=== PATIENT | male | born 1970 | race Caucasian/White ===

== ENCOUNTER 2023-09-26 12:31 | Outpatient (CLI) | payer BC, SELFPAY ==
[2023-09-26 13:23] LABS: Basophils Absolute Auto 0.1 K/mm3 (0.0-0.1); Eosinophils Absolute Auto 0.3 K/mm3 (0-0.3); Eosinophils Percent Auto 4.5 % (0-4.4); Hematocrit 47.7 % (42.0-52.0); Immature Granulocyte Absolute 0.01 K/mm3 (0.00-0.031); Immature Granulocyte Percent A 0.2 % (0-0.5); Lymphocytes Absolute Auto 1.78 K/mm3 (0.9-3.2); Lymphocytes Percent Auto 30.9 % (18.3-44.2); Mean Corpuscular HGB Conc 33.5 g/dl (32-36); Mean Corpuscular Hemoglobin 27.4 pg (26-34); Mean Corpuscular Volume 81.5 fl (80-100); Mean Platelet Volume 10.7 fl (7.4-10.4); Monocytes Absolute Auto 0.5 K/mm3 (0.1-0.6); Monocytes Percent Auto 8.3 % (2.6-8.5); Neutrophils Absolute Auto 3.2 K/mm3 (1.3-6.7); Neutrophils Percent Auto 55.1 % (45.5-73.1); Platelet Count Result 211 k/mm3 (150-375); Red Blood Count 5.85 M/mm3 (4.6-6.20); Red Cell Distribution Width 13.9 % (11.5-14.5); White Blood Count 5.8 K/mm3 (4.5-10.0)
[2023-09-26 13:32] LABS: Alanine Aminotransferase 30 U/L (6-50); Albumin Level 4.8 g/dL (3.5-5.1); Alkaline Phosphatase 47 U/L (38-126); Anion Gap 8 mmol/L (4-12); Aspartate Amino Transferase 36 U/L (17-59); Bilirubin,Total 1.3 mg/dL (0.2-1.3); Blood Urea Nitrogen 17 mg/dL (9-20); Calcium 9.8 mg/dL (8.4-10.2); Carbon Dioxide 28 mmol/L (22-30); Chloride 104 mmol/L (98-107); Cholesterol 245 mg/dL (0-200); Estimated Glomerular Filt Rate > 60; Glucose 103 mg/dL (65-110); HDL Direct 41 mg/dL; Potassium 4.8 mmol/L (3.4-5.0); Sodium 140 mmol/L (137-145); Triglycerides 183 mg/dL (<150)
[2023-09-26 13:44] LABS: LDL Cholesterol Direct 158 mg/dL
[2023-09-26 14:02] LABS: Prostate Specific Antigen 1.7 ng/mL (< OR = 4.0)
[2023-09-26 14:27] LABS: Hemoglobin A1C 5.6 % (<5.7)
== END 2023-09-26 12:32 | disposition home or self-care (01) ==
LOC: ANHGOSHLAB 12:33
PROVIDERS: PCP Family Medicine; Visit Provider Family Medicine
DX: Z12.5 Encounter for screening for malignant neoplasm of prostate (principal); R73.9 Hyperglycemia, unspecified; R53.83 Other fatigue; Z13.220 Encounter for screening for lipoid disorders; Z13.228 Encounter for screening for other metabolic disorders
CPT/HCPCS: 36415; 80053; 80061; 83036; 84153; 85025; G0103

== ENCOUNTER 2024-02-13 03:02 | Day surgery (SDC) | payer BC, SELFPAY ==
[2024-02-03 10:48] VITALS: BMI 33.2
[2024-02-13 10:15] VITALS: BP 111/71; PULSE 64; RESP 18; TEMP 35.9; O2SAT 98; BMI 33.2
[2024-02-13] MEDS: LACTATED RINGERS 1,000 ML 150 ML IV CONT (10:25)
--- NOTE | 2024-02-13 10:52 | P.PNAN_ITS ---
Anes - Initial Pre Proc Eval Procedure: Operation Date: 02/13/24 11:00 Proposed Procedures p Screening Colonoscopy - Piotr Chapman MD Date/Time: 02/13/24 10:52 Surgeon: Piotr Chapman MD Pre Op Diagnosis: screening colon Patient Data Age: 53 Gender: M Height: 1.78 m Weight: 105 kg Last Vital Signs Temp 35.9 C L 02/13/24 10:15 Pulse 64 02/13/24 10:15 Resp 18 02/13/24 10:15 BP 111/71 02/13/24 10:15 Pulse Ox 98 02/13/24 10:15 O2 Del Method Room Air 02/13/24 10:15 Allergies Allergy/AdvReac Type Severity Reaction Status Date / Time milk Allergy Mild Abdominal Verified 02/13/24 10:19 Pain Home Medications Medication Instructions Recorded Confirmed Type diphenhydramine HCl 25 mg capsule 50 mg PO QHS 09/26/23 02/13/24 History (Benadryl) melatonin 5 mg tablet 5 mg PO QHS 09/26/23 02/13/24 History dicyclomine 10 mg capsule 10 mg PO BID #60 caps 10/24/23 02/13/24 Rx tadalafil 5 mg tablet 5 mg PO DAILY #30 tabs 10/27/23 02/13/24 Rx Patient hx anesthesia problems: none Family hx anesthesia problems: none Results Review: All pre-operative results and documents have been reviewed as part of the pre- operative evaluation. ON LICENSE OF [facility] Social History Social History Social History: caffeine- coffee 1 cup daily Smoking status: Never smoker Alcohol intake: current Alcohol use details: social Substance use: never Do You Feel Safe in your Home?: Yes Lack of Transportation: No Lack of Food: Never True Current Housing: I Have Housing Concerned About Future Housing: No Difficulty Paying Gas/Electric Bills: No Difficulty Paying for Meds: No Currently Unemployed: No Education: Bachelor's Degree Difficulty w/ Childcare or Family Care: No Living arrangements: with family Occupation/Education: occupation 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 Gender identity (if verbalized by the patient): Female Spiritual care concerns: No Agree to blood products: Yes Anes - Eval Final PreProcedure Day of Procedure 02/13/24 10:52 Patient weight: obese Heart: regular rate and rhythm Lungs: clear to auscultation Airway: Mallampati scale class II Neurological: alert and oriented Last oral intake: >/= 8 hours ASA classification: III Emergent: no Anesthetic plan: proceed Anesthesia type and monitoring: general GIVS and standard monitoring Results Review: All pre-operative results and documents have been reviewed as part of the pre- operative evaluation. Informed Consent: The patient's anesthetic plan and its attendant risks and benefits were discussed with the patient/family/POA. Questions were solicited and answers provided to the satisfaction of the patient/family/POA.
--- NOTE | 2024-02-13 10:54 | PM.IMHP ---
H&P: HPI History of Present Illness Date/Time: 02/13/24 10:54 Chief Complaint: History of Crohn's disease Narrative: the patient had an episode of bowel obstruction in 1999. He received steroids for a short period of time and then discontinued. Since then, patient has not received any treatment, however he still has frequent diarrhea with some blood. He is here for colonoscopy. His last colonoscopy was 10 years ago. [facility] Social History Social History Social History: caffeine- coffee 1 cup daily Smoking status: Never smoker Alcohol intake: current Alcohol use details: social Substance use: never Do You Feel Safe in your Home?: Yes Lack of Transportation: No Lack of Food: Never True Current Housing: I Have Housing Concerned About Future Housing: No Difficulty Paying Gas/Electric Bills: No Difficulty Paying for Meds: No Currently Unemployed: No Education: Bachelor's Degree Difficulty w/ Childcare or Family Care: No Living arrangements: with family Occupation/Education: occupation 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 Gender identity (if verbalized by the patient): Female Spiritual care concerns: No Agree to blood products: Yes Meds Home Medications and Allergies Home Medications Medication Instructions Recorded Confirmed Type diphenhydramine HCl 25 mg capsule 50 mg PO QHS 09/26/23 02/13/24 History (Benadryl) melatonin 5 mg tablet 5 mg PO QHS 09/26/23 02/13/24 History dicyclomine 10 mg capsule 10 mg PO BID #60 caps 10/24/23 02/13/24 Rx tadalafil 5 mg tablet 5 mg PO DAILY #30 tabs 10/27/23 02/13/24 Rx Allergies Allergy/AdvReac Type Severity Reaction Status Date / Time milk Allergy Mild Abdominal Verified 02/13/24 10:19 Pain Vital Signs Vital Signs - 24 hr 02/13/24 10:15 Temperature 96.6 F L Pulse Rate 64 Respiratory Rate 18 Blood Pressure 111/71 Pulse Oximetry 98 Oxygen Delivery Room Air Assessment and Plan Assessment and plan (1) Crohn's disease: Code(s): K50.90 - Crohn's disease, unspecified, without complications Status: Acute Plan The patient is deemed a good candidate for the procedure. Consent signed. Will proceed.
[2024-02-13 11:54] VITALS: BP 125/91; PULSE 72; RESP 16; O2SAT 98
[2024-02-13 12:04] VITALS: BP 118/74; PULSE 70; RESP 16; O2SAT 98
[2024-02-13 12:14] VITALS: BP 135/91; PULSE 69; RESP 18; O2SAT 98
== END 2024-02-13 12:23 | disposition home or self-care (01) ==
PROVIDERS: PCP Family Medicine; Referring Provider Nurse Practitioner Family; Visit Provider Internal Medicine Gastroenterology
PROC: 0DJD8ZZ Inspection of Lower Intestinal Tract, Via Natural or Artificial Opening Endoscopic (ICD-10-PCS; CPT 45378; principal; 2024-02-13 11:00)
DX: Z12.11 Encounter for screening for malignant neoplasm of colon (principal); D12.0 Benign neoplasm of cecum; D12.2 Benign neoplasm of ascending colon; D12.4 Benign neoplasm of descending colon; K64.0 First degree hemorrhoids; K50.90 Crohn's disease, unspecified, without complications; E66.9 Obesity, unspecified; Z68.33 Body mass index [BMI] 33.0-33.9, adult
CPT/HCPCS: 45390; 88305; J2003; J2704; J7120